=== PATIENT | male | born 1980 | race Caucasian/White ===

== ENCOUNTER 2017-04-23 07:18 | Emergency (ER) | payer SELFPAY ==
[2017-04-23] MEDS ORDERED: NO MEDICATIONS (07:38)
[2017-04-23] MEDS ORDERED: ZITHROMAX PO (08:04)
[2017-04-26 12:30] LABS: CHLAMYDIA TRACH Not Detected (Not Detected); N GONOR Detected (Not Detected)
== END 2017-04-23 08:17 | disposition home or self-care (01) ==
LOC: SED 07:18
PROVIDERS: Emergency Medicine
DX: A64 Unspecified sexually transmitted disease (principal); F17.210 Nicotine dependence, cigarettes, uncomplicated; Z79.899 Other long term (current) drug therapy
CPT/HCPCS: 87491; 87591; 96372; 99283; J0696